=== PATIENT | male | born 1940 | race Caucasian/White ===

== ENCOUNTER 2024-07-19 05:56 | Day surgery (SDC) | payer MEDICARE, SELFPAY ==
[2024-07-02 12:44] VITALS: BMI 32.2
[2024-07-19] VITALS (13 sets, daily range): BP systolic 120–175; BP diastolic 54–81
[2024-07-19 08:42] LABS: ACT-LR - POC 303 Seconds (116-155)
[2024-07-19 09:11] LABS: ACT-LR - POC 273 Seconds (116-155)
--- NOTE | 2024-07-19 09:35 | ITS.CL.ABL ---
Meat Pickler - Ablation
Ablation
Procedure Report:
ELECTROPHYSIOLOGY ABLATION STUDY
DATE:: July 19, 2024�����������������������������REFERRING: Dr. Tam Garcia
INDICATION: Paroxysmal supraventricular tachycardia in the form of atrial fibrillation.��Also history of atypical atrial tachycardia�flutter likely left atrial source and review of ECGs
HISTORY: See H and P.� As above
ANTIARRHYTHMIC DRUG: Amiodarone
PRE-PROCEDURE STEPHANIE: No atrial thrombus
PRESENTING RHYTHM: Sinus bradycardia
'TIME-OUT':��called and confirmed.
SEDATION/ANESTHESIA:��provided via the anesthesia department using general anesthesia (LMA).
INTRAVENOUS/ARTERIAL ACCESS:
Right femoral venous - 8Fr
Left femoral venous - 8 Fr, 6 Fr
Ultrasound guidance for bilateral femoral vein access was utilized by me to obtain access with demonstration of normal anatomy
CHADS-VASC Score:
HAS-Bled Score
PROCEDURE:
1.��A decapolar CS catheter was placed within the CS for mapping and pacing.��This was also used as the reference catheter for the 3-D map.
2. The intracardiac ultrasound catheter was positioned in the RA to identify the FO for targeting of transseptal puncture, assist��in identification of the pulmonary vein ostia, monitoring pre and post ablation pulmonary vein flow velocities,
monitoring for 'bubble' formation during RF application as a sign of thermal injury,��and to monitor for pericardial effusion during mapping and ablation procedure.���Left atrial size, LV ejection fraction, and pulmonary vein flows were monitored
pre and post ablation procedure. The other valves were inspected and found to be free of significant regurgitation or stenosis.
3.��Half of the calculated heparin bolus was administered prior to the first transeptal puncture.��Transseptal puncture was performed to diagnose RA and LA pressure so that safety of LA mapping and ablation could be further assessed, and to access
the left atrium and pulmonary veins for mapping and ablation.��This entailed advancing an 10 Faroese steerable sheath, safe septal wire with dilator into the superior vena cava and withdrawing both (monitoring intracardiac ultrasound, fluoroscopy and
tip pressure) with the tip oriented toward the atrial septum.��The fossa ovalis was engaged (indicated by sudden displacement of the sheath tip as well as tenting of the fossa seen on intracardiac ultrasound).��Left atrial access required a pass
with the Brockenbrough needle extended.��Left atrial catheter position was confirmed by pressure monitoring (RA mean pressure 8 mm Hg and LA mean presure 12 mm Hg), LA saturation (99%),��as well as fluoroscopy.��The sheath was advanced over the
dilator and positioned in the left atrium.��This procedure was repeated for the Agilis sheath.��The remainder of the calculated heparin bolus was administered and heparin was
infused to maintain ACT at 300 -350 seconds throughout the case.
4.��RA pacing was performed via the proximal decapolar poles and LA pacing was performed via the distal decapolr poles.
5. A quadrapolar catheter was first positioned at the His position for His Bundle recording which was tagged via the 3-D Navex sytem, and then passed to the RVA for RV pacing and recording.
6. The lattice catheter was placed in each of the LIPV, LSPV, RSPV and the RIPV.��
7.��Next, a 3-D map was created using Navex.���A 3-D reconstructed CT image was compared to the 3-D Navex map to assist in anatomic interpretation, mapping and ablation.��The CT image and the NavX image were fused.
8. PFA lesions were given in white platinum around the right and left veins and up posterior wall box lesion set incorporating the roof posterior wall and floor. Focal lesions with PFA were given for the entirety of the lesion set. This rendered
entrance next block in all 4 pulmonary veins as well as the roof floor and posterior on the left atrium.
9. The patient had periods of junctional rhythm but recovery of sinus rhythm of the end of procedure.
AV Wenckebach less than 400 ms. Burst atrial pacing down to atrial refractoriness to 270 ms did not use any sustained tachyarrhythmia.
TOTAL FLOURO TIME: 12.6 minutes 120 mGy
TOTAL RF DURATION: 0 minutes
REVERSAL OF HEPARIN: 35 mg of protamine, slow IV administration
COMPLICATIONS:
None
Intracardiac US shows no pericardial effusion post ablation.
SUMMARY:��
Complex left atrial mapping and ablation.
Isolation of all 4 pulmonary veins and the posterior wall including the roof floor and posterior wall proper. Patient was noninducible for any other tachyarrhythmia post ablation.
RECOMMENDATIONS:
1. Ambulate in 4 hours
2. Resume anticoagulation
3.��Discontinue amiodarone in 1 month
4.��Consider same-day discharge
Copy to: Dr. Tam garcia
--- NOTE | 2024-07-19 14:00 | W.PN.UPDATE ---
Update Note
Progress Note Update
83 yo WM s/p PVI (Same day). He denies cp, sob, thomas diet, EKG SR RBBB, b/l groins c/d/i no HT, soft. He will resume Eliquis tonight and continue Amiodarone for 1 month then stop. Activity restrictions reviewed. He will f/u Dr. Diaz in 1 mo. He is for
d/c home after 230p if groins stable and voiding.
== END 2024-07-19 14:36 | disposition home or self-care (01) ==
LOC: CATH 05:56
PROVIDERS: ATTENDING PHYSICIAN Internal Medicine Cardiovascular Disease; FAMILY PHYSICIAN Nurse Practitioner Family; OTHER PHYSICIAN Internal Medicine Cardiovascular Disease
DX: I48.0 Paroxysmal atrial fibrillation (principal); I48.4 Atypical atrial flutter; I11.0 Hypertensive heart disease with heart failure; I50.32 Chronic diastolic (congestive) heart failure; I13.0 Hypertensive heart and chronic kidney disease with heart failure and stage 1 through stage 4 chronic kidney disease, or unspecified chronic kidney disease; N18.30 Chronic kidney disease, stage 3 unspecified; Z87.891 Personal history of nicotine dependence; Z79.899 Other long term (current) drug therapy; Z86.718 Personal history of other venous thrombosis and embolism; I25.10 Atherosclerotic heart disease of native coronary artery without angina pectoris; E78.5 Hyperlipidemia, unspecified; Z86.79 Personal history of other diseases of the circulatory system; I44.0 Atrioventricular block, first degree; K44.9 Diaphragmatic hernia without obstruction or gangrene; K21.9 Gastro-esophageal reflux disease without esophagitis; E04.1 Nontoxic single thyroid nodule; N40.0 Benign prostatic hyperplasia without lower urinary tract symptoms; R26.9 Unspecified abnormalities of gait and mobility; R29.6 Repeated falls; Z91.81 History of falling; H91.90 Unspecified hearing loss, unspecified ear; E66.9 Obesity, unspecified; Z68.32 Body mass index [BMI] 32.0-32.9, adult; M19.90 Unspecified osteoarthritis, unspecified site; Z79.01 Long term (current) use of anticoagulants; I45.10 Unspecified right bundle-branch block
CPT/HCPCS: C1894 ×2; C1730; C1766; C1892; C1733; C1759; 85347; 86900; 86901; 93005; 93656; 93657

== ENCOUNTER → 2024-11-21 10:31 | Outpatient (REF) | payer MEDICARE, OTHER, SELFPAY ==
[2024-11-21 11:36] LABS: Hematocrit 39.7 % (39.0-52.0); Hemoglobin 12.5 g/dL (13.0-18.0); Mean Corp Hgb Conc. 31.5 g/dL (33.0-37.0); Mean Corpuscular Volume 83.2 fL (80.0-94.0); Nucleated Red Blood Cells % 0 % (-); Platelet Count 188 10^3/uL (130-400); Red Cell Dist. Width 16.9 % (11.5-14.5)
[2024-11-21 11:55] LABS: ALT (SGPT) 14 U/L (0-50); AST (SGOT) 21 U/L (17-59); Albumin 4.0 g/dl (3.5-5.0); Alkaline Phosphatase 51 U/L (38-126); Blood Urea Nitrogen 28 mg/dl (9-20); Calcium 8.9 mg/dl (8.4-10.2); Carbon Dioxide 28 mmol/L (22-30); Chloride 111 mmol/L (98-107); Glucose 79 mg/dl (70-99); Potassium 4.2 mmol/L (3.5-5.1); Sodium 143 mmol/L (135-145); Total Protein 6.8 g/dl (6.3-8.2); eGFR > 60.00
[2024-11-21 12:41] LABS: INR 1.07; PT 14.4 Sec (11.4-14.6)
== END ==
LOC: SDSPAT 10:31
PROVIDERS: ATTENDING PHYSICIAN Internal Medicine Cardiovascular Disease; FAMILY PHYSICIAN Nurse Practitioner Family; OTHER PHYSICIAN Internal Medicine Cardiovascular Disease
DX: I48.0 Paroxysmal atrial fibrillation (principal)
CPT/HCPCS: 36415; 80053; 85025; 85610; 86850; 86900; 86901; 87070; 93005

== ENCOUNTER 2024-11-26 05:50 | Inpatient (IN) | payer MEDICARE, OTHER, SELFPAY ==
[2024-11-21 10:41] VITALS: BMI 32.1
--- NOTE | 2024-11-21 11:44 | HPS.HSE ---
Family Physician
-
Family Physician: NO INTERVIEW UNKNOWN
Chief Complaint
-
Paroxysmal atrial fibrillation.
History of Present Illness
The patient in an 84 year old male presenting today for paroxysmal atrial fibrillation. The patient underwent pulmonary vein isolation for his arrhythmia in July [address] Jareth Malave. He has been maintaining normal sinus rhythm ever
since his procedure. He is on current pharmacological therapy with Metoprolol Succinate. The dosing of his Metoprolol had to be reduced a few months ago due to baseline bradycardia for which he is asymptomatic. He has been compliant with Eliquis for
oral anticoagulation due to a [id number] of 3. Of note, he does have a history of significant, recurrent epistaxis while on oral anticoagulation. Two of these episodes required nasal cauterization at [facility] due to uncontrolled
bleeding. His HAS-BLED score is 5. He is interested in pursuing with a Watchman implant in the hopes of discontinuing oral anticoagulation one day. He denies any current complaints today such as chest pain, shortness of breath, palpitations, nausea,
vomiting, diarrhea, lightheadedness, dizziness, cough, sore throat, or fever.
Medical History
Past Medical History
Past Medical History: Reports Other
Additional Past Medical History:
1. Paroxysmal atrial fibrillation, status post pulmonary vein isolation 07/2024; pharmacological therapy with Metoprolol Succinate and oral anticoagulation with Eliquis.
2. Hypertension.
3. Hyperlipidemia.
4. Coronary artery disease, non-obstructive.
5. Chronic diastolic heart failure, preserved ejection fraction.
6. Sinus bradycardia, asymptomatic.
7. PVCs and PACs.
8. First degree AV block.
9. Right bundle branch block.
10. Mild-moderate valvular disease.
11. Mild emphysema per chest CT 06/2024.
12. Pulmonary embolism, provoked, 03/2024.
13. DVT, provoked, 09/2022.
14. Chronic kidney disease stage 3.
15. GERD.
16. Hiatal hernia, status post laparoscopic repair.
17. Diverticulosis.
18. Hepatic steatosis.
19. Ambulatory dysfunction with balance/gait disturbance and frequent falls.
20. 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
21. Degenerative disc disease.
22. Osteoarthritis, status post right total knee arthroplasty.
23. Thyroid nodules.
24. Chronic anemia.
25. BPH with urinary retention, self-catheterizes.
26. Hearing impairment bilaterally.
27. Obesity BMI 32.1.
28. Remote tobacco abuse.
Past Surgical History: Reports Other
Additional Past Surgical History:
1. Pulmonary vein isolation.
1. Laparoscopic hiatal hernia repair.
2. Right ankle surgery.
3. Right total knee arthroplasty.
4. Nasal cauterization x 2.
Social History
Tobacco: Former Smoker (He is a former up to two and 1/2 pack per day cigarette smoker who quit tobacco products altogether in the 1970s. )
Alcohol: None
Personal:
Living: Other (He lives with his in a 1 story home. )
Family History
Family History: Not pertinent
Allergies / Home Medications
Allergy/Medication List:
HOME MEDICATIONS:
1. Cranberry 1 capsule p.o. daily.
2. Bumex 1 mg p.o. Monday, Monday, Monday.
3. Eliquis 5 mg p.o. twice a day.
4. Losartan 25 mg p.o. daily.
5. Metoprolol succinate 12.5 mg p.o. daily.
6. Multivitamin 1 tablet p.o. daily.
ALLERGIES: No known allergies.
Review of Systems
-
A 12 point ROS was completed and negative except as noted: Yes
Physical Exam
Vital Signs
Blood pressure 163/71. Heart rate 64. Respirations 18. Pulse ox 97% on room air.
Height 5 feet, 8 inches. Weight 95.8 kg. BMI 31.1.
Physical Exam
General: Well Developed, Well Nourished and No Apparent Distress
HEENT: NormoCephalic, Moist mucous membranes, Atraumatic and Hearing Impaired
Respiratory: Clear
Cardiac: Regular Rhythm
GI: Soft, Non Tender, Non Distended and Other (Obese. )
Musculoskeletal: Edema, Left Lower Extremity, Edema, Right Lower Extremity and Other (The patient ambulates with a rolling walker.)
Skin: Warm and Dry
Neuro: AO x 3 and Nonfocal/grossly intact
Laboratory Results
-
DIAGNOSTIC STUDIES as of 11/21/2024: White blood cell count 5.3. Hemoglobin 12.5. Platelet count 188,000. PT 14.4. INR 1.07. Sodium 143. Potassium 4.2 BUN 28. Creatinine 1.0. Glucose 79. Calcium 8.9. AST 21. ALT 14. Albumin 4.0. Type and screen O
positive. MRSA nasal screen negative.
EKG 11/21/2024: Sinus rhythm. Right bundle branch block. Minimal voltage criteria for LVH, may be normal variant.
Echocardiogram 03/25/2024: Ejection fraction 55-60%. Mild-moderate concentric LVH. Mild-moderately dilated left atrium. Mild-moderate aortic sclerosis/calcification without any evidence of aortic stenosis. Mild aortic regurgitation. Mild-moderate
mitral regurgitation.
Impression/Plan
-
IMPRESSION/PLAN:
1. Paroxysmal atrial fibrillation: The patient is in need of a Watchman implant with Dr. Jareth Malave, who will be assisted by Dr. Melody Cárdenas, on 11/26/2024. The benefits and risks of the procedure have been explained to the patient. The patient
understands these risks and wishes to proceed. He will likely undergo a 3 month post-procedural transesophageal echocardiogram. Should his Watchman device be well-seated and without significant leaks, he will likely transition off of Eliquis and
onto a baby Aspirin daily indefinitely.
[2024-11-26] VITALS (13 sets, daily range): BP systolic 137–164; BP diastolic 68–84
[2024-11-26] MEDS: NSS 500 IV (06:52)
--- NOTE | 2024-11-26 08:55 | ITS.CL.PN ---
Leather Dresser - Procedure Note
Procedure
Procedure Note:
Watchman implantation report
Date: November 26, 2024
History: 84-year-old male status post pulmonary isolation and left atrial posterior wall isolation in 2024 with pulsed field ablation who presents in sinus rhythm after having a life-threatening epistaxis event for watchman implantation.
Procedure report:
Watchman implant: Malave
Groin access and transseptal puncture: Avi
Procedure report:
After informed consent and patient safety timeout the patient was sedated with general anesthesia. The STEPHANIE probe was dropped see separate report by Dr. Melgoza demonstrating a 20 mm ostium to the left atrial appendage.
Under ultrasound guidance a micropuncture kit was utilized by Dr. Cárdenas establishing an 8 Salvadorean short sheath in the right femoral vein. Over a pigtail RF wire this was upgraded to the 16.8 Salvadorean watchman sheath with dilator and RF wire apparatus.
Under STEPHANIE guidance the sheath was advanced to the inferior and anterior fossa ovalis with adequate tenting and radiofrequency energy was applied to the wire establishing left atrial access and the sheath was brought to the left atrium. The pigtail
wire was exchanged for a pigtail catheter which was engaged into the distal left atrial appendage and shot demonstrating a windsock morphology. Ostium was measured at 18 to 19 mm by venography. No pericardial fusion pre or post procedure.
We then brought a 24 mm device to the field after the pigtail catheter was removed and this was engaged towards the back wall of the left atrial appendage without utilizing the chicken wing lobe and delivered distally met prep Pass criteria. 15 to
19% compression, ostial delivery, dye shot demonstrating ostial position, tug test without movement and no leak was seen on STEPHANIE. As the device met Pass criteria the device was deployed and sheaths and catheters removed to the right atrium. ACT
greater than 300 seconds was maintained during left atrial access. When sheath and catheters were removed 35 mg of protamine was given and the right femoral venous access was hemostatic.
Impression:
24 mm Watchman device implant. Meeting Pass criteria as above.
Plan:
3 months of Eliquis 5 mg p.o. twice daily and 3-month STEPHANIE and if the 3-month STEPHANIE is without leak or device thrombus will stop Eliquis. Lifelong aspirin 81 mg daily would be reasonable post discontinuation of Eliquis.
--- NOTE | 2024-11-26 09:28 | WATCHMAN.MD ---
Watchman Implant
-
ELECTROPHYSIOLOGY/INTERVENTIONAL PROCEDURE REPORT
Date of Procedure: November 26, 2024
Assisting Physician: Jareth Malave
PROCEDURES:
1. Left atrial appendage occlusion device using 24 mm WATCHMAN FLX device
2. Ultrasound-guided right common femoral venous access
INDICATION: High [id number] warranting buttermaker full anticoagulation but inability to do this given his bleeding risk/bleeding complication.
ACCESS: Right common femoral vein, 16Fr sheath, under US guidance using micropunture kit.
Ultrasound was utilized for vascular access. The right femoral vein was visualized under ultrasound, and the vessels was patent. An image was stored permanently in the patient's medical record. Under direct ultrasound guidance, an 8 Brazilian
sheaths was inserted into the right common femoral vein, using a micropuncture kit through a modified Seldinger technique.
HEMODYNAMICS : (mmHg)
LA Pressure: 23
PROCEDURE REPORT:
After informed consent and patient safety 'Timeout' the patient was intubated and sedated by the anesthesiology service. Under ultrasound guidance, the right femoral vein was accessed by Dr. Melody Cárdenas for transseptal puncture and intracardiac
ultrasound, respectively. Concomitant transesophageal echocardiogram was performed by Dr. Saleem Perkins
Baseline intracardiac ultrasound demonstrated no pericardial effusion and baseline STEPHANIE images revealed a trace pericardial effusion.
After ruling out a left atrial appendage thrombus, the patient was heparinized for an ACT between 350-400 seconds and under STEPHANIE and intracardiac ultrasound guidance transseptal puncture was performed by Dr. Melody Cárdenas using the [place] VersaCross
trans-septal system in a mid to inferior position on the inferior-superior axis and a mid position on the anterior-posterior axis. Left atrial pressure was 23 millimeters mercury.
Once transseptal puncture was performed over the [place] Versacross pigtail 0.035 wire, which was parked in the body of left atrial appendage, the watchman access double curve sheath was advanced over this into the left atrium. A 5 Brazilian pigtail
catheter was placed into the left atrial appendage and an appendage gram was performed using intravenous contrast dye demonstrating a chicken wing type anatomy that was suitable likely for a 24 mm WATCHMAN FLX device.
After appropriately prepping the device, Dr. Jareth Malave successfully deployed a 24mm WATCHMAN FLX device. Device showed excellent positioning with no leaks post device deployment. 16 to 19 % compression was noted in the device after deployment. A
'tug-test' was performed demonstrating stability of the device. Given PASS criteria were met, the device was then released successfully by Dr. Jareth Malave.
Post procedure, STEPHANIE imaging demonstrated no new or worse pericardial effusion. Sheaths and catheters were removed from the left atrium and heparin was reversed using protamine. Catheters removed from the femoral veins with [id number] suture
applied. The patient tolerated the procedure well.
Closure Device: Figure of 8 suture
CONCLUSIONS
1. Successful deployment of 24 mm WATCHMAN FLX device under STEPHANIE and ICE guidance.
RECOMMENDATIONS
1. Plan for Eliquis 5 mg twice daily for the next 3 months.
2. 3-month STEPHANIE post procedure to assess stability of device and rule out any eri-device leaks. If no issues noted on the 3-month STEPHANIE post watchman placement such as a greater than 5 mm leak, plan would be to stop anticoagulation at that point and
continue daily baby aspirin lifelong.
3. Figure of 8 suture removal prior to discharge.
Melody Cárdenas MD, [facility], [place]
[2024-11-26] MEDS: COZAAR 25 MG PO (10:09)
[2024-11-26] MEDS: TOPROL XL 12.5 MG PO (10:10)
[2024-11-26 10:15] LABS: ACT-LR - POC > 397 Seconds (116-155)
[2024-11-26] MEDS: TYLENOL 650 MG PO (12:18)
--- NOTE | 2024-11-26 13:33 | WATCHMAN.MD ---
Watchman Implant
-
ELECTROPHYSIOLOGY/INTERVENTIONAL PROCEDURE REPORT
Date of Procedure: November 26, 2024
Assisting Physician: Jareth Malave
PROCEDURES:
1. Left atrial appendage occlusion device using 24 mm WATCHMAN FLX device
2. Ultrasound-guided right common femoral venous access
INDICATION: High [id number] warranting retirement full anticoagulation but inability to do this given his bleeding risk/bleeding complication.
ACCESS: Right common femoral vein, 16Fr sheath under US guidance using micropunture kit.
Ultrasound was utilized for vascular access. The right femoral vein was visualized under ultrasound, and the vessels was patent. An image was stored permanently in the patient's medical record. Under direct ultrasound guidance, an 8 Jordanian
sheaths was inserted into the right common femoral vein, using a micropuncture kit through a modified Seldinger technique.
HEMODYNAMICS : (mmHg)
LA Pressure: 23
PROCEDURE REPORT:
After informed consent and patient safety 'Timeout' the patient was intubated and sedated by the anesthesiology service. Under ultrasound guidance, the right femoral vein was accessed by Dr. Melody Cárdenas for transseptal puncture, respectively.
Concomitant transesophageal echocardiogram was performed by Dr. Saleem Perkins.
Baseline STEPHANIE demonstrated trace pericardial effusion.
After ruling out a left atrial appendage thrombus, the patient was heparinized for an ACT between 350-400 seconds and under STEPHANIE and intracardiac ultrasound guidance transseptal puncture was performed by Dr. Melody Cárdenas using the [place] VersaCross
trans-septal system in a mid to inferior position on the inferior-superior axis and a mid position on the anterior-posterior axis. Left atrial pressure was 23 millimeters mercury.
Once transseptal puncture was performed over the [place] Versacross pigtail 0.035 wire, which was parked in the body of left atrial appendage, the watchTIKI.VN access double curve sheath was advanced over this into the left atrium. A 5 Jordanian pigtail
catheter was placed into the left atrial appendage and an appendage gram was performed using intravenous contrast dye demonstrating a chicken wing type anatomy that was suitable likely for a 24mm WATCHMAN FLX device.
After appropriately prepping the device, Dr. Jareth Malave successfully deployed a 24 mm WATCHMAN FLX device. Device showed excellent positioning with no leaks post device deployment. 16 to 19 % compression was noted in the device after deployment. A
'tug-test' was performed demonstrating stability of the device. Given PASS criteria were met, the device was then released successfully by Dr.John Malave.
Post procedure, STEPHANIE imaging demonstrated no new or worse pericardial effusion. Sheaths and catheters were removed from the left atrium and heparin was reversed using protamine. Catheters removed from the femoral veins with [id number]-vu-spduy suture
applied. The patient tolerated the procedure well.
Closure Device: Figure of 8 suture
CONCLUSIONS
1. Successful deployment of 24 mm WATCHMAN FLX device under STEPHANIE and ICE guidance.
RECOMMENDATIONS
1. Plan for Eliquis 5 mg twice daily for the next 3 months.
2. 3-month STEPHANIE post procedure to assess stability of device and rule out any eri-device leaks. If no issues noted on the 3-month STEPHANIE post watchman placement such as a greater than 5 mm leak, plan would be to stop anticoagulation at that point and
continue daily baby aspirin lifelong.
3. Figure of 8 suture removal prior to discharge.
Melody Cárdenas MD, [facility], [facility]
--- NOTE | 2024-11-26 13:41 | PTCARENOTE ---
Pt straight cathed for 400 mls.Sterile procedure followed. He self caths every 8 hours and does not have self cath kit available. Procedure well tolerated.
--- NOTE | 2024-11-26 14:15 | W.DS.TRANS ---
DC Summary - [facility]
-
Discharge Instructions:
Discharge Diagnosis/Procedures Atrial fibrillation post Watchman device implant
Diet Low Cholesterol
Driving Restrictions No driving for 24 hours
Others Tests YOUR STEPHANIE IS SCHEDULED FOR 02/27/2025 AT [place]
[facility]. YOU WILL RECIEVE A
PHONE CALL WITH INSTRUCIONS AND TIME OF ARRIVAL.
YOUR PREADMISSION TESTING IS SCHEDULED FOR 02/20
@ 11:20 AT [facility]
Instructions:
Stand-Alone Forms: DC Instructions- Cath/EP Lab
Changes to Home Medications: No
Discharge Medications:
DC Medications w/original date entered in [facility]
bumetanide 1 mg tablet 1 mg PO MOWEFR 07/02/24
cranberry 1 cap PO DAILY 07/02/24
losartan 25 mg tablet 25 mg PO DAILY 07/02/24
metoprolol succinate 25 mg tablet,extended release 24 hr 12.5 mg PO DAILY 07/02/24
apixaban 5 mg tablet (Eliquis) 5 mg PO BID 11/19/24
multivitamin 1 tab PO DAILY 11/20/24
Home Medication Changes
Pending Results: No
== END 2024-11-26 14:00 | disposition home or self-care (01) | DRG 274 ==
LOC: CATH-IN 05:50
PROVIDERS: Internal Medicine Cardiovascular Disease; ADMITTING PHYSICIAN Internal Medicine Cardiovascular Disease
PROC: 02L73DK Occlusion of Left Atrial Appendage with Intraluminal Device, Percutaneous Approach (ICD-10-PCS; 2024-11-26)
PROC: B24BZZ4 Ultrasonography of Heart with Aorta, Transesophageal (ICD-10-PCS; 2024-11-26)
DX: I48.0 Paroxysmal atrial fibrillation (principal); I13.0 Hypertensive heart and chronic kidney disease with heart failure and stage 1 through stage 4 chronic kidney disease, or unspecified chronic kidney disease; I50.32 Chronic diastolic (congestive) heart failure; N18.30 Chronic kidney disease, stage 3 unspecified; E78.5 Hyperlipidemia, unspecified; I25.10 Atherosclerotic heart disease of native coronary artery without angina pectoris; I49.3 Ventricular premature depolarization; I44.0 Atrioventricular block, first degree; I45.10 Unspecified right bundle-branch block; J43.9 Emphysema, unspecified; K21.9 Gastro-esophageal reflux disease without esophagitis; K44.9 Diaphragmatic hernia without obstruction or gangrene; K76.0 Fatty (change of) liver, not elsewhere classified; R29.6 Repeated falls; M19.90 Unspecified osteoarthritis, unspecified site; E04.2 Nontoxic multinodular goiter; D64.9 Anemia, unspecified; E66.9 Obesity, unspecified; N40.1 Benign prostatic hyperplasia with lower urinary tract symptoms; R33.8 Other retention of urine; I08.0 Rheumatic disorders of both mitral and aortic valves; H91.93 Unspecified hearing loss, bilateral; Z96.651 Presence of right artificial knee joint; Z68.32 Body mass index [BMI] 32.0-32.9, adult; Z79.01 Long term (current) use of anticoagulants; Z87.891 Personal history of nicotine dependence; Z87.19 Personal history of other diseases of the digestive system; Z86.711 Personal history of pulmonary embolism; Z86.718 Personal history of other venous thrombosis and embolism
CPT/HCPCS: 33340; 85347; 93005; 93355; C1894; Q9967

== ENCOUNTER → 2025-02-20 11:13 | Outpatient (REF) | payer MEDICARE, OTHER, SELFPAY | LOC: SDSPAT 11:13 | PROVIDERS: ATTENDING PHYSICIAN Internal Medicine Cardiovascular Disease; FAMILY PHYSICIAN Nurse Practitioner Family; OTHER PHYSICIAN Internal Medicine Cardiovascular Disease | DX: I48.0 Paroxysmal atrial fibrillation (principal) | CPT/HCPCS: 93005 ==

== ENCOUNTER 2025-02-27 07:05 | Day surgery (SDC) | payer MEDICARE, OTHER, SELFPAY ==
[2025-02-20 12:03] VITALS: BMI 28.8
== END 2025-02-27 09:55 | disposition home or self-care (01) ==
LOC: CATH 07:05
PROVIDERS: ATTENDING PHYSICIAN Internal Medicine Cardiovascular Disease; FAMILY PHYSICIAN Nurse Practitioner Family; OTHER PHYSICIAN Internal Medicine Cardiovascular Disease
DX: I48.91 Unspecified atrial fibrillation (principal); R04.0 Epistaxis; I13.0 Hypertensive heart and chronic kidney disease with heart failure and stage 1 through stage 4 chronic kidney disease, or unspecified chronic kidney disease; I50.32 Chronic diastolic (congestive) heart failure; E78.5 Hyperlipidemia, unspecified; I25.10 Atherosclerotic heart disease of native coronary artery without angina pectoris; Z86.718 Personal history of other venous thrombosis and embolism; K21.9 Gastro-esophageal reflux disease without esophagitis; E04.1 Nontoxic single thyroid nodule; N40.0 Benign prostatic hyperplasia without lower urinary tract symptoms; H91.90 Unspecified hearing loss, unspecified ear; M19.90 Unspecified osteoarthritis, unspecified site; R26.9 Unspecified abnormalities of gait and mobility; R29.6 Repeated falls; Z91.81 History of falling; Z95.818 Presence of other cardiac implants and grafts; Z79.899 Other long term (current) drug therapy; Z79.01 Long term (current) use of anticoagulants; Z87.891 Personal history of nicotine dependence; I45.10 Unspecified right bundle-branch block; I08.0 Rheumatic disorders of both mitral and aortic valves
CPT/HCPCS: 93312; 93320; 93325